=== PATIENT | female | born 2000 | race Two or more races ===

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

== ENCOUNTER 2024-02-02 20:49 | Emergency (ER) | payer BC, SELFPAY ==
--- NOTE | 2024-02-02 | ECG_ITS ---
Test Reason : DIZZINESS Blood Pressure : / mmHG Vent. Rate : 081 BPM Atrial Rate : 081 BPM P-R Int : 130 ms QRS Dur : 074 ms QT Int : 356 ms P-R-T Axes : 053 046 047 degrees QTc Int : 413 ms Normal sinus rhythm with sinus arrhythmia Normal ECG No previous ECGs available Referred By: Generic ED Physician Electronically Signed By:Ponce Pascal
[2024-02-02 21:17] VITALS: BP 131/67; PULSE 80; RESP 18; TEMP 37; O2SAT 100; BMI 27.5
[2024-02-02 21:42] LABS: MANUAL DIFF FLAG NO
[2024-02-02 21:43] LABS: Basophils Absolute Auto 0.1 X10*3/uL (0.0-0.2); Basophils Percent Auto 0.7 % (0-2); Eosinophils Absolute Auto 0.1 X10*3/uL (0.0-0.4); Eosinophils Percent Auto 1.1 % (0-4); Hematocrit 41.9 % (37.0-47.0); Imm Gran Abs Auto 0.01 X10*3/uL (0.00-0.03); Imm Gran Pct Auto 0.1 % (0.0-0.4); Lymphocytes Absolute Auto 2.1 X10*3/uL (1.2-4.9); Mean Corpuscular HGB Conc 33.4 g/dl (31.0-35.0); Mean Corpuscular Hemoglobin 29.4 pg (27.0-33.0); Mean Platelet Volume 9.6 fL (9.4-12.3); Monocytes Absolute Auto 0.5 X10*3/uL (0.1-1.2); Monocytes Percent Auto 7.2 % (2-11); Neutrophils Absolute Auto 4.8 x10*3/uL (2.0-8.3); Neutrophils Percent Auto 62.9 % (45-73); Platelet Count 312 X10*3/uL (160-400); Red Blood Count 4.76 X10*6/uL (4.20-5.50); White Blood Count 7.5 X10*3/uL (4.8-10.8)
[2024-02-02 21:58] LABS: Alanine Aminotransferase 13 U/L (0-31); Albumin Level 4.3 g/dL (3.5-5.0); Alkaline Phosphatase 69 U/L (39-117); Anion Gap 12 (12-20); Aspartate Amino Transferase 18 U/L (5-31); Bilirubin Total 0.3 mg/dL (0.0-1.0); Blood Urea Nitrogen 10 mg/dL (9-16); Calcium 9.6 mg/dL (8.4-10.2); Carbon Dioxide 25 mmol/L (22-29); Chloride 107 mmol/L (96-108); Creatinine Clr Calc Pharmacy 131.6; Estimated Glomerular Filt Rate > 60; Glucose Random 90 mg/dL (60-115); Sodium 140 mmol/L (135-145); Total Protein 7.4 g/dL (6.5-8.0)
[2024-02-02 22:05] LABS: Troponin-I High Sensitivity < 2.7 ng/L (<3.5-17.0)
[2024-02-03 00:40] VITALS: BP 122/79; PULSE 70; RESP 18; TEMP 36.9; O2SAT 100
--- NOTE | 2024-02-03 01:05 | ED_ITS ---
HPI - General Adult General Chief complaint: General Medical Stated complaint: dizziness Time Seen by Provider: 02/03/24 00:59 Source: patient Mode of arrival: ambulatory Limitations: no limitations History of Present Illness ED Provider: roni GANDARA narrative: Patient with no significant past medical history was seen at [facility] last week for the chest pain comes here for similar chest pain in the mid chest lasted for few minutes no shortness a breath no radiation of the pain at this time there is no chest pain Related Data Home Medications ?Medication ?Instructions ?Recorded ?Confirmed No Known Home Meds 07/18/21 07/18/21 Allergies Allergy/AdvReac Type Severity Reaction Status Date / Time No Known Allergies Allergy Verified 02/02/24 21:23 Review of Systems 2 Review of Systems: Yes all other systems are reviewed and are negative [facility] Past Medical History Surgical History No pertinent past surgical history Family History Family History Mother No problems noted. 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 Oriented X3. No acute distress. Eyes: No pallor no icterus ENT: Pharynx normal. Oral Mucosa moist Neck: Normal inspection. Neck supple. CVS: Normal heart rate and rhythm. Pulses normal. Respiratory: No respiratory distress. Equal air entry bilateral, no wheezing/rales/rhonchi Abdomen: Soft and nontender. Bowel sounds are present, Skin: Skin warm and dry. Normal skin color. Normal skin turgor. Extremities: No lower extremity edema. No calf tenderness Neuro: Oriented X 3. Medical Decision Making Medical Decision Making [facility] Narrative: Patient has atypical chest pain heart score of 0 initial workup negative discharge patient home Differential Diagnosis Differential Diagnoses: The differential diagnosis associated with the presentation includes Lab Data [facility] Lab Attestation statement: I reviewed the patient's lab results. 02/02/24 21:33 02/02/24 21:33 Labs: Lab Results 02/02/24 Range/Units 21:33 WBC 7.5 (4.8-10.8) X10*3/uL RBC 4.76 (4.20-5.50) X10*6/uL Hgb 14.0 (12.0-16.0) g/dl Hct 41.9 (37.0-47.0) % MCV 88.0 (80.0-98.0) fL MCH 29.4 (27.0-33.0) pg MCHC 33.4 (31.0-35.0) g/dl RDW 12.0 (11.0-16.0) % Plt Count 312 (160-400) X10*3/uL MPV 9.6 (9.4-12.3) fL Immature Gran % (Auto) 0.1 (0.0-0.4) % Neut % (Auto) 62.9 (45-73) % Lymph % (Auto) 28.0 (20-40) % [place] % (Auto) 7.2 (2-11) % Eos % (Auto) 1.1 (0-4) % Baso % (Auto) 0.7 (0-2) % Lymph # (Auto) 2.1 (1.2-4.9) X10*3/uL [place] # (Auto) 0.5 (0.1-1.2) X10*3/uL Eos # (Auto) 0.1 (0.0-0.4) X10*3/uL Baso # (Auto) 0.1 (0.0-0.2) X10*3/uL Abs Immat Gran (auto) 0.01 (0.00-0.03) X10*3/uL Absolute Neuts (auto) 4.8 (2.0-8.3) x10*3/uL Absolute Nucleated RBC 0.000 (0.0-0.012) X10*3/uL Nucleated RBC % (auto) 0.0 (0.0-0.2) /100WBC Sodium 140 (135-145) mmol/L Potassium 4.0 (3.3-5.1) mmol/L Chloride 107 (96-108) mmol/L Carbon Dioxide 25 (22-29) mmol/L Anion Gap 12 (12-20) BUN 10 (9-16) mg/dL Creatinine 0.66 (0.5-1.4) mg/dL Estim Creat Clear Calc 131.6 Estimated GFR > 60 Random Glucose 90 (60-115) mg/dL Calcium 9.6 (8.4-10.2) mg/dL Total Bilirubin 0.3 (0.0-1.0) mg/dL AST 18 (5-31) U/L ALT 13 (0-31) U/L Alkaline Phosphatase 69 (39-117) U/L Troponin I High Sens < 2.7 (<3.5-17.0) ng/L Total Protein 7.4 (6.5-8.0) g/dL Albumin 4.3 (3.5-5.0) g/dL Independent Interpretation I performed an independent interpretation of an: EKG Interpretation: Normal sinus rhythm heart rate 81 beats per minute normal intervals no acute STT changes impression normal EKG Discharge Plan Discharge Clinical Impression: Atypical chest pain Patient Disposition: Home, Self-Care Instructions: Noncardiac Chest Pain (ED) Additional Instructions: Your symptoms are not from the heart your workup is negative Follow up with your PCP Prescriptions: No Action No Known Home Meds Interventions: ED Discharge Assessment Last Done: 02/03/24 01:43 Discharge Date/Time: 02/03/24 01:44 Print Language: Serbian
[2024-02-03 01:43] VITALS: BP 122/79; PULSE 70; RESP 18; TEMP 36.9; O2SAT 100
== END 2024-02-03 01:44 | disposition home or self-care (01) ==
PROVIDERS: Emergency Provider Internal Medicine; PCP Nurse Practitioner Family
DX: R07.89 Other chest pain (principal)
CPT/HCPCS: 36415; 80053; 84484; 85025; 93005; 99283; 99284

== ENCOUNTER → 2024-02-02 21:24 | Outpatient (BNV) | payer BC, SELFPAY | PROVIDERS: Emergency Provider Internal Medicine; PCP Nurse Practitioner Family; Visit Provider Internal Medicine Cardiovascular Disease | DX: R42 Dizziness and giddiness (principal) | CPT/HCPCS: 93010 ==

== ENCOUNTER 2024-03-14 11:18 | Outpatient (AMB) | payer BC, SELFPAY ==
--- NOTE | 2024-03-14 11:28 | A.OFFPC_ITS ---
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 Required: No Metal Control Worker Name: patient refused Is last menstrual period known: Yes Last menstrual period: 03/07/24 Post menopausal: No Patient : No Allergies No Known Allergies Allergy (Verified 03/14/24 11:50) Medication List - Last Reconciled 03/14/24 by Neftaly King CNP No Known Home Meds Tobacco use date assessed: 03/14/24 Dental Screening Dental Screen Date: 03/14/24 Did you have a dental visit in the last 12 months?: No Did you have a dental problem in the last 6 months where you did not have access to dental care?: No Was dental information given to patient?: Yes HPI HPI Comments History of Present Illness Details New patient Prior PCP: Wood HARVEY Michelle CNP 07/18/21 Last office visit/CPE: 07/18/2021 Acute issue(s): She notes stressors related to usual family issues. She denies anxiety or depression . PMHx: Astigmatism SurgHx: None FHx: Dad: Allergies. MGM: Cardiovascular disease, diabetes. PGM: Diabetes. MGF: Diabetes SocHx: Nonsmoker. Does not drink alcohol. 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 - Originally from the [place] . - Not currently engaged in a regular exe rcise routine. - Does not smoke, vape, or consume alcoh ol. 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 - Reports normal dietary habits, though specifics not discussed. - Denies current sexual activity. Health Maintenance - Last eye examination was two months ag o with new glasses prescribed for astigmatism. - Last tetanus vaccination was in 2021. - Flu vaccination is overdue; the last o ne was administered in 2022. She requests the vaccine. - She has never had a pap smear test. - She has never been sexually active. Avery s no concerns for STDs. - She has not had dental check up for ab out 2 years. Encouraged to scheduled an appointment with a dentist for routine dental care. [facility] Medical History (Updated 03/14/24 @ 14:34 by Neftaly King CNP) Sinusitis Surgical History No pertinent past surgical history Family History (Updated 03/14/24 @ 11:40 by Malgorzata Pedro) Mother No problems noted. Father Allergies Maternal Grandmother Diabetes Cardiovascular disease Paternal Grandmother Diabetes Maternal Grandfather Diabetes Social History Housing: Apartment Alcohol intake: never Patient Tobacco Use Status: Never used Tobacco e-Cigarette/Vaping Use: Never Used Second Hand Smoke Exposure: No service: No Current occupational status: employed and unemployed Cognitive needs: No Hearing needs: No Vision needs: Yes (glasses) Female Reproductive History Menstrual Date of last menstrual period: 03/07/24 Questionnaire PHQ-9 Over the last 2 weeks, how often have you been bothered by any of the following problems? 1. Little interest or pleasure in doing things: several days 2. Feeling down, depressed, or hopeless: several days 3. Trouble falling or staying asleep, or sleeping too much: several days 4. Feeling tired or having little energy: several days 5. Poor appetite or overeating: several days 6. Feeling bad about yourself - or that you are a failure or have let yourself or your family down: several days 7. Trouble concentrating on things, such as reading the newspaper or watching television: not at all 8. Moving or speaking so slowly that other people could have noticed. Or the opposite - being so fidgety or restless that you have been moving around a lot more than usual: not at all 9. Thoughts that you would be better off or of hurting yourself in some way : not at all Total score: 6 Depression Screening Interpretation: Negative Depression Screening Done: Yes 70955 - PHQ-9 Billing: Yes Source: Developed by Drs. Desmond Casper, Neva Cárdenas, Karan Boyd and colleagues, with an educational marilee from [employer]. Thrive Questionnaire Date Thrive assessed: 12/03/24 I am a: Patient What is your living situation today?: I have a steady place to live Within the past 12 months, did the food you bought not last and you didn't have the money to get more?: Never true Within the past 12 months, did you worry whether your food would run out before you got money to buy more?: Never true Do you have trouble paying for medicines?: No Do you have trouble getting transportation to medical appointments?: No Do you have trouble paying your heating and electricity bill?: No Do you have trouble taking care of your child, family member or friend?: No Do you have trouble with day-to-day activities such as bathing, preparing meals, shopping, managing finances, etc.?: No Are you currently unemployed and looking for a job?: Yes Are you interested in more education?: Yes Please select the resources that you would like help with: Job search/training Currently or been in a relationship where the following occur: No concerns reported THRIVE Score: 0 AUDIT C Alcohol Use Questionnaire (AUDIT-C) 1. How often do you have a drink containing alcohol?: Never 3. How often do you have six or more drinks on one occasion?: Never Total Score: 0 Score Reviewed/Action Taken: No MIKE-7 AMB Questionnaire MIKE-7 Date MIKE - 7 assessed: 03/14/24 Feeling nervous, anxious, or on edge: 1 = Several days Not being able to stop or control worryin = Not at all Worrying too much about different things: 1 = Several days Trouble relaxin = Not at all Being so restless that it is hard to sit still: 0 = Not at all Becoming easily annoyed or irritable: 0 = Not at all Feeling afraid as if something awful might happen: 0 = Not at all Total MIKE-7 score (0-4 normal; 5-9 mild; 10-14 moderate; 15-21 severe): 2 Source: Developed by Drs. Desmond Casper, Neva Cárdenas, Karan Boyd and colleagues, with an educational marilee from [employer] MIKE-7 Assessment Billing MIKE-7 Assessment Tool: MIKE-7 Assessment 08903 Review of Systems Const Details: Denies chills, Denies fatigue, Denies fever(s), Denies headache(s) and Denies weakness HEENT Denies change in vision, Denies dizziness, Denies headache(s), Denies hearing l oss, Denies nasal congestion, Denies sinus pain, Denies sinus pressure and Denies sore throat Card Denies chest pain, Denies lightheadedness, Denies dyspnea and Denies other (palpitations) Resp Denies cough, Denies dyspnea and Denies wheezing GI Denies abdominal pain, Denies melena, Denies hematochezia, Denies change in bowel habits, Denies dyspepsia and Denies nausea Denies hematuria and Denies dysuria Musc Denies abnormal gait, Denies myalgias, Denies arthralgias, Denies numbness and Denies tingling Skin/Breast Denies rash, Denies unusual bruising and Denies wounds Neuro Denies abnormal gait, Denies dizziness, Denies headache(s), Denies memory loss, Denies numbness, Denies Sensory deficit (Neuro), Denies tingling and Denies weakness Psych Denies anxiety, Denies depression and Denies memory loss Endo Denies cold intolerance, Denies fatigue, Denies heat intolerance, Denies polydipsia and Denies polyuria Kunal/Lymph Denies easy bleeding and Denies easy bruising Aller/Immun Denies wheezing Physical exam (Primary Care) Vital Signs: Last Vital Signs Temp 98.4 F 03/14/24 11:35 Pulse 86 03/14/24 11:35 Resp 16 03/14/24 11:35 BP 122/60 03/14/24 11:35 Pulse Ox 100 03/14/24 11:35 Oxygen Delivery Method Room Air 03/14/24 11:35 BMI result Body Mass Index 27.3 Tobacco/Smoking Status: Tobacco use Status Tobacco use date assessed 03/14/24 03/14/24 11:35 Patient Tobacco Use Status Never used Tobacco 03/14/24 11:30 e-Cigarette/Vaping Use Never Used 03/14/24 11:30 PHQ-9: PHQ-9 Score PHQ-9: Total score 6 03/14/24 12:16 Depression Screening Interpretation: Negative Thrive Assessment: Date of Thrive Assessment Date Thrive assessed 03/14/24 03/14/24 11:30 Currently or been in a relationship where the following occur: No concerns reported Const Other: General: no acute distress, well developed, alert and awake Nutritional Appearance: well nourished Orientation/consciousness: patient oriented x3 [facility] Head: Yes normocephalic and Yes atraumatic Ears: hearing grossly normal bilaterally and TM's normal bilaterally General nose exam: Normal external nose present and Normal nares present Mouth: Normal oral and palatal mucosa present and moist mucous membranes Teeth and gingiva: dentition normal Throat: Yes oropharynx normal Eyes Pupils: Equal, round and reactive pupils present and Pupil accommodation reflex normal EOM: EOMs intact bilaterally Neck Neck: Yes normal visual inspection, Yes no lymphadenopathy and Yes trachea midline Thyroid: Thyroid normal Carotids: no bruits Lymphatic: no lymphadenopathy noted Chest Chest palpation & inspection: normal inspection of the chest Resp Effort & Inspection: normal respiratory effort Auscultation: clear to auscultation bilaterally Cardio Rate: regular rate Rhythm: regular rhythm Heart sounds: S1 normal heart sound present, S2 normal heart sound present, no gallops, no murmurs and no rubs Bruits: no abdominal aortic bruits and no carotid bruits GI Palpation (GI): No Abdominal aortic bruit present, Soft to palpation, nontender, No hepatosplenomegaly present and No Rebound tenderness present Auscultation: normal bowel sounds General: Yes no CVA tenderness Back/Spine/Pelvis Back: no CVA tenderness Cervical Spine: cervical ROM normal and No Cervical spine tenderness Thoracic/Lumbar Spine: thoraco-lumbar ROM normal, No pain with thoraco-lumbar ROM, No thoracic spinal tenderness and No lumbar spinal tenderness Skin General: warm and dry. Normal skin color. Normal skin turgor Lesions: no lesions Rashes: no rashes Trauma: no lacerations or abrasions Wounds: no wounds Nails: normal Neuro General: patient oriented x3, gait normal and CN's II-XI intact bilaterally Cranial nerves: Yes Equal, round and reactive pupils present Cognition (Neuro): normal cognition Gait exam (Neuro): Normal gait present Motor exam (neuro): 5/5 motor strength present throughout Sensory Exam: No Sensory deficit (Neuro) Deep tendon reflexes (DTR's): Right patellar reflex intensity grade: 2+ and Left patellar reflex intensity grade: 2+ Extrem General: Yes normal to inspection, No edema and No calf tenderness Psych Appearance: grossly normal Affect: normal affect Attitude: cooperative Thought process: Normal thought process present Office Procedures Flu Questionnaire Does the patient have a severe egg allergy?: No Does the patient have severe life threatening allergies?: No Does the patient have a fever or illness today?: No Has the patient ever had Guillain-Madrid Syndrome?: No Has the patient ever had any past reaction to a flu shot?: No Immunizations Fluarix Triv [id number] (PF) 45 mcg (15 mcg x 3)/0.5 mL IM syringe Performing Provider: Neftaly King CNP [place] [facility] [facility] [place] [facility] Administered by: Radha Bess RN on 03/14/24 12:15 Dose Route Admin Location Dispensed Lot Number Expiration Date 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 0.5 mL IM Right Deltoid 0.5 mL [id number] 10/09/24 [id number] [employer] VIS Given Date VIS Provided VIS Publication Date 03/14/24 Single Vaccine 20 Eligibility Eligibility Date Funding Source Not [facility] Eligible 03/14/24 Private Coding Level of Care Code New Pt Prev Care 18-39yr(20041 Diagnoses Normal physical examination, routine Z00.00 Pap smear for cervical cancer screening Z12.4 Stress F43.9 Laboratory tests ordered as part of a complete physical exam (CPE) Z00.00 Additional Codes MIKE-7 Assessment Billing - MIKE-7 Assessment Tool: MIKE-7 Assessment 30094 ([id number]) PHQ-9 - 25122 - PHQ-9 Billing: Yes ([id number]) Assessment & Plan Assessment & Plan (1) Normal physical examination, routine: Code(s): Z00.00 - Encounter for general adult medical examination without abnormal findings Category: Medical Plan: No significant functional limitation noted. (2) Pap smear for cervical cancer screening: Code(s): Z12.4 - Encounter for screening for malignant neoplasm of cervix Category: Medical Plan: She has never been sexually active or had a pap smear test. (3) Stress: Code(s): F43.9 - Reaction to severe stress, unspecified Category: Medical Plan: Routine exercise encouraged. Follow up with worsening or new symtpoms. (4) Laboratory tests ordered as part of a complete physical exam (CPE): Code(s): Z00.00 - Encounter for general adult medical examination without abnormal findings Category: Medical Plan: Fasting labs ordered as part of a complete physical exam. Advised to fast for at least 10 hours before getting labs drawn. May drink water Verbalized understanding and agreed with treatment plan. 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 - Perform lab work before next visit. - Follow up in 2-3 weeks for a telehealth visit for labs review or sooner with symptoms or concerns.
[2024-03-14 11:35] VITALS: BP 122/60; PULSE 86; RESP 16; TEMP 36.9; O2SAT 100; BMI 27.3
== END 2024-03-14 12:11 | disposition home or self-care (01) ==
PROVIDERS: PCP Nurse Practitioner Family; Visit Provider Nurse Practitioner Family
DX: Z00.00 Encounter for general adult medical examination without abnormal findings (principal); Z12.4 Encounter for screening for malignant neoplasm of cervix; F43.9 Reaction to severe stress, unspecified; Z23 Encounter for immunization

== ENCOUNTER → 2024-03-14 11:18 | Outpatient (BNVA) | payer BC, SELFPAY | PROVIDERS: PCP Nurse Practitioner Family; Visit Provider Nurse Practitioner Family | DX: Z00.00 Encounter for general adult medical examination without abnormal findings (principal); Z23 Encounter for immunization; F43.9 Reaction to severe stress, unspecified | CPT/HCPCS: 90471; 90656; 96127 ==

== ENCOUNTER 2024-04-06 11:00 | Outpatient (REF) | payer BC, SELFPAY ==
[2024-04-06 12:13] LABS: Appearance Urine Clear; Color Urine Yellow; Glucose Urine UA Negative (Negative); Leukocyte Esterase Urine Negative (Negative); Nitrite Urine Negative (Negative); Specific Gravity - Urine 1.025 (1.005-1.025); Urine Blood Negative (Negative); Urine Ketones Negative (Negative); Urine Protein Trace mg/dL (Neg-Trace)
[2024-04-06 12:39] LABS: Cholesterol 175 mg/dL (<200); HDL Cholesterol 51 mg/dL (>40); LDL Cholesterol Calculated 109 mg/dL (<100); Triglycerides 78 mg/dL (<150)
[2024-04-06 12:55] LABS: TSH reflex Free T4 0.74 uIU/mL (0.32-4.0)
== END 2024-04-06 11:01 | disposition home or self-care (01) ==
LOC: HO.LAB 11:00
PROVIDERS: PCP Nurse Practitioner Family; Visit Provider Nurse Practitioner Family
DX: Z00.00 Encounter for general adult medical examination without abnormal findings (principal)
CPT/HCPCS: 36415; 80061; 81003; 84443

== ENCOUNTER 2024-08-09 08:15 | Outpatient (REF) | payer BC, SELFPAY ==
[2024-08-09 12:52] LABS: Bacterial Vaginosis PCR NEGATIVE (Negative); Candida Group PCR NOT DETECTED (Not Detect); Candida glab krusei PCR NOT DETECTED (Not Detect); Trichomonas vaginalis PCR NOT DETECTED (Not Detect)
[2024-08-09 13:24] LABS: CT PCR NOT DETECTED (Not Detect.); NG PCR NOT DETECTED (Not Detect.)
== END 2024-08-09 08:16 | disposition home or self-care (01) ==
LOC: HO.LNP 08:15
PROVIDERS: PCP Nurse Practitioner Family; Visit Provider Advanced Practice Midwife
DX: Z01.419 Encounter for gynecological examination (general) (routine) without abnormal findings (principal); N89.8 Other specified noninflammatory disorders of vagina
CPT/HCPCS: 81515; 87491; 87591; 88175

== ENCOUNTER 2024-08-09 08:15 | Outpatient (AMB) | payer BC, SELFPAY ==
--- NOTE | 2024-08-09 08:28 | MHC.OFFVIS ---
Vital Signs 08/09/24 08:29 Height 5 ft 4 in Weight 167 lb BMI 28.7 BP 122/80 Intake Visit Reasons: New Patient annual Intake Note: First supervisor esters and emulsifiers exam Construction Teacher: Construction Teacher Present (Neyda) Allergies No Known Allergies Allergy (Verified 08/09/24 08:28) Is last menstrual period known: Yes Last menstrual period: 07/23/24 HPI Comments Details: She is a premenopausal woman presenting for new patient annual examination. Ambulating with crutches. First pelvic exam. Doing well with supervisor esters and emulsifiers concerns. Has occasional odor before her menses, external irritation. Regular monthly menses. Currently is never been sexually active. STI screening offered; she accepts. She tries to eat healthy, limited exercise with knee pain. Denies family history of breast, ovarian or colon cancer. [facility] Medical History Vaginal odor Sinusitis Surgical History No pertinent past surgical history Family History Mother No problems noted. Father Allergies Maternal Grandmother Diabetes Cardiovascular disease Paternal Grandmother Diabetes Maternal Grandfather Diabetes Social History Housing: Apartment Alcohol intake: never Patient Tobacco Use Status: Never used Tobacco e-Cigarette/Vaping Use: Never Used Second Hand Smoke Exposure: No service: No Current occupational status: employed and unemployed Cognitive needs: No Hearing needs: No Vision needs: Yes (glasses) Female Reproductive History Menstrual Duration of menses: 3-5 days Date of last menstrual period: 07/23/24 control method: none Total pregnancies: 0 Review of Systems Const All systems reviewed & are unremarkable except as noted in HPI and below Reports as per HPI Eyes Reports no additional complaints ENT Reports no additional complaints Card Reports no additional complaints Resp Reports no additional complaints GI Reports as per HPI and Reports no additional complaints Reports as per HPI Musc Reports no additional complaints Skin/Breast Reports as per HPI Neuro Reports no additional complaints Psych Reports no additional complaints Endo Reports no additional complaints Kunal/Lymph Reports no additional complaints Aller/Immun Reports no additional complaints Physical Exam Vital Signs: Last Vital Signs BP 122/80 08/09/24 08:29 BMI result Body Mass Index 28.7 Const General: cooperative, healthy appearing, no acute distress, well developed and alert Orientation/consciousness: patient oriented x3 HEENT Head: Yes normal to inspection Eyes General: appearance normal, both eyes and all related structures Neck Neck: Yes normal visual inspection Thyroid: Thyroid normal Chest Chest palpation & inspection: normal inspection of the chest and other (no puckering, dimpling, peau de orange, retraction, discharge, masses) Breast/axilla inspection: normal inspection of the breasts Breast/axilla palpation: normal palpation of the breasts Resp Effort & Inspection: normal respiratory effort GI Inspection: Yes normal to inspection Palpation (GI): Soft to palpation Rectal Exam - Female: deferred Other: Bilateral labial inflammation erythema slight edema, shaven vulva General: Yes Bimanual renal exam normal bilaterally and Yes bladder normal to palpation External Female Exam: normal external appearance, normal appearance of the urethra, erythema and external swelling Speculum Exam - Vagina: normal appearance of the vagina, normal palpation and abnormal vaginal discharge (clumpy) white Speculum Exam - Cervix: normal appearance of the cervix and normal palpation Bimanual exam- vagina & uterus: normal bimanual exam, normal palpation, uterine size normal, bladder normal to palpation, normal palpation and non-tender Bimanual Exam- Adnexa, other: no masses Skin General skin exam: no rashes or lesions noted Rashes: no rashes Neuro General: patient oriented x3 Cognition (Neuro): normal cognition Extrem General: Yes normal to inspection Psych Attitude: cooperative Thought process: Normal thought process present Assessment & Plan Assessment & Plan (1) Encounter for well woman exam with routine gynecological exam: Code(s): Z01.419 - Encounter for gynecological examination (general) (routine) without abnormal findings Category: Medical Plan: Discussed: Current recommendations for pap smears per ASCCP guidelines. Breast awareness and periodic breast exams. Maintain a healthy lifestyle including a well balanced diet and routine exercise. Use condoms for STI and prevention. Follow up for control consult if needed in the future. Patient verbalizes understanding and agrees to the plan of care. She was given opportunity to ask questions and all questions were answered to the best of my ability. RTO in one year for annual supervisor esters and emulsifiers examination. This note is constructed using voice recognition software. While every effort has been made to ensure accuracy, impress associate errors may have been included. (2) Pap smear for cervical cancer screening: Code(s): Z12.4 - Encounter for screening for malignant neoplasm of cervix Category: Medical Plan: Pap smear obtained. (3) Vaginal odor: Code(s): N89.8 - Other specified noninflammatory disorders of vagina Category: Medical Plan: See notes below. Plan BV panel obtained await results for plan of care. Instructions: Clean with warm water, no soaps, scented products. Wear loose, cotton underclothes, avoid tight outer clothing. Air when possible. Recommended not to shave, use of women's probiotics. Consider changing brand of external luiz pads using more natural on sent it products. Total time I personally spent on visit and management today: ?10 minutes. Time spent included review of pertinent office notes in the electronic health record; review of laboratory and imaging results; review of personal family medical history; performing physical exam; discussing diagnosis and plan of care with the patient; documenting the encounter in the EMR. Orders: Orders CT NG by PCR Today N89.8 - Other specified noninflammatory disorders of vagina Pap Smear Today Z01.419 - Encounter for gynecological examination (general) (routine) without abnormal findings, Z12.4 - Encounter for screening for malignant neoplasm of cervix Bacterial Vaginosis Panel Today N89.8 - Other specified noninflammatory disorders of vagina Coding Level of Care Code New Pt Level 2 (54823) New Pt Prev Care 18-39yr(40054 Diagnoses Encounter for well woman exam with routine gynecological exam Z01.419 Pap smear for cervical cancer screening Z12.4 Vaginal odor N89.8
[2024-08-09 08:29] VITALS: BP 122/80; BMI 28.7
--- OUTSIDE RECORDS SUMMARY | 2024-08-09 08:29 | XMS_ITS | Clinical Summary ---
Author Organization [employer] Address [address] [place] [address] Care Team Providers Care Manufacturing Automation Engineer Name Role Phone Jorge Rene MD Primary Care Prov ider Allergies Active Allergy Reactions Criticality Noted Date Comments Shellfish Allergy 06/08/2024 Shrimp Flavor Agent (Non-Screening) 06/08/2024 Medications No known medications Active Problems Problem Noted Date Diagnosed Date Encounter for medical examination to establish c are 06/08/2024 Assessment & Plan (06/08/2024 3:10 PM EST): Last pcp visit March 2024 ER: April 2024 palpitations Hospitalization: - Pmhx: - Pshx: - All: shrimp/seafood Meds: claritin G0 Not sexually active Menarche: 15yrs LMP: 04/26/24 Pap smear: appointment scheduled for [place] at [facility] [place] Palpitations 06/08/2024 Assessment & Plan (06/08/2024 4:15 PM EST): For the past 3-4 months patient has been experiencing episodes of palpitations with associated dizziness, no loc, no nausea/vomiting, chest pain, has been seen at er where EKG has been performed and has been unremarkable, will order blood test to check for thyroid disease, also will 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 Encounters Date Type Department Care Team Description 06/08/2024 2:45 PM EST Telemedicine [facility] [address] [place] [address] Jorge Rene MD Encounter for medical examination to establish care (Primary Dx); Palpitations 06/08/2024 Telephone [facility] [address] [place] [address] Jorge Rene MD 06/08/2024 Travel 06/07/2024 Telephone [facility] [address] [place] [address] Jorge Rene MD chart prep 05/31/2024 Travel from Last 3 Months Family History Medical History Relation Name Comments Sinusitis Father Diabetes Maternal Grandfather Cardiomyopathy Maternal Grandmother Cataracts Mother Hypertension Mother Relation Name Status Comments Father Maternal Grandfather Maternal Grandmother Mother Social History Tobacco Use Types Packs/Day Years Used Date Smoking Tobacco: Never Smokeless Tobacco: Never Tobacco Cessation:Counseling Given: Not Answered Alcohol Use Standard Drinks/Week Comments Never 0 (1 standard drink = 0.6 oz pur e alcohol) Depression Answer Date Recorded Patient Health Questionnaire-9 Score 0 06/08/2024 Patient Health Questionnaire-9 Score 0 06/08/2024 Last PHQ-9: Questionnaire Data Not on file 0 06/08/2024 Housing Stability Answer Date Recorded What is your housing situation today? I have reji noav 06/08/[address] you li ve. Do you have problems with any of the following? None of the above 06/08/2024 Food Insecurity Answer Date Recorded Within the past 12 months, y ou worried that your food would run out before you got money to buy more: Never True 06/08/2024 Within the past 12 months,th e food you bought just didn't last and you didn't have enough money to get more: Never True Transportation Answer Date Recorded In the past 12 months, has l ack of transportation kept you from medical appts, meetings, work or from getting things needed for daily living? No 06/08/2024 Utilities Answer Date Recorded In the past 12 months, has t he electric, gas, oil or water company threatened to shut off services in your home? No 06/08/2024 Depression Answer Date Recorded Patient Health Questionnaire-2 Score 0 06/08/2024 Internet Access Answer Date Recorded Internet Access Q1 Yes 06/08/2024 Internet Access Q2 Not on file 06/08/2024 Comments Unknown Sex and Gender Information Value Date Recorded Sex Assigned at Female 05/04/2024 2:30 PM EST Legal Sex Female 1:15 PM EDT Gender Identity Female 05/04/2024 2:30 PM EST Sexual Orientation Straight 05/04/2024 2: 30 PM EST Plan of Treatment Health Maintenance Due Date Last Done Comments Chlamydia and Gonorrhea Screening 2002 HIV Screening 2002 Family Planning (PISQ) 2017 HPV Vaccines (1 - 3-dose series) 2017 Hepatitis C Screening 2020 DTaP/Tdap/Td Vaccines (1 - Tdap) 2021 Hepatitis B Vaccines (1 of 3 - 19+ 3-dose series) 2021 Pap Smear 10/02/2023 COVID-19 Vaccine (1 - 2023-2 5 season) 2023 Influenza Vaccine (#1) 2023 Alcohol/Substance Use Screening 06/08/2025 06/08/2024 Depression Screening 06/08/2025 06/08/2024, 06/08/2024 SDOH Screening 06/08/2025 06/08/2024 Tobacco Screening 06/08/2025 06/08/2024 Zoster Vaccines (1 of 2) 2052 RSV Patients and Patients Aged 60 years or older (1 - 1-dose 75+ series) 2077 HIB Vaccines Aged Out No longer eligi ble based on patient's age to complete this topic Hepatitis A Vaccines Aged Out No long er eligible based on patient's age to complete this topic IPV Vaccines Aged Out No longer eligi ble based on patient's age to complete this topic Meningococcal Vaccine Aged Out No rand jessica eligible based on patient's age to complete this topic Pneumococcal Vaccine: Pediatrics (0 to 5 Years) and At-Risk Patients (6 to 49) Years) Aged Out No longer eligible b ased on patient's age to complete this topic RSV under 20 months Aged Out No longe r eligible based on patient's age to complete this topic Rotavirus Vaccines Aged Out No longer eligible based on patient's age to complete this topic Insurance BCBS PPO Care Teams Manufacturing Automation Engineer Relationship Specialty Start Date End Date Jorge Rene MD [address] [place] [id number] PCP - General Internal Medicine 06/08/24
== END 2024-08-09 09:26 | disposition home or self-care (01) ==
LOC: HO.HWS 08:15
PROVIDERS: PCP Nurse Practitioner Family; Visit Provider Advanced Practice Midwife
DX: Z01.419 Encounter for gynecological examination (general) (routine) without abnormal findings (principal); N89.8 Other specified noninflammatory disorders of vagina
CPT/HCPCS: 99212; 99385; 99459

== ENCOUNTER 2024-08-09 09:13 | Outpatient (REF) | payer BC, SELFPAY ==
--- OUTSIDE RECORDS SUMMARY | 2024-08-09 09:47 | XMS_ITS | Clinical Summary ---
Author Organization [employer] Address [address] [place] [address] Care Team Providers Care Investment Associate Name Role Phone Jorge Rene MD Primary [...] Pap smear: appointment scheduled for July at [facility] [place] Palpitations 06/08/2024 Assessment & Plan (06/08/2024 4:15 PM EST): For the past 3-4 months patient has been experiencing episodes of palpitations with associated dizziness, no loc, no nausea/vomiting, chest pain, has been seen at er where EKG has been performed and has been unremarkable, will order blood test to check for thyroid disease, also will 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 Encounters Date Type Department Care Team Description 06/08/2024 2:45 PM EST Telemedicine [facility] [address] [place] [address] Jorge Rene MD Encounter for medical examination to establish care (Primary Dx); Palpitations 06/08/2024 Telephone [facility] [address] [place] [address] Jorge Rene MD 06/08/2024 Travel 06/07/2024 Telephone [facility] [address] [place] [address] Jorge Rene MD chart prep 05/31/2024 Travel [...] your housing situation today? I have reji nova 06/08/[address] you li [...] this topic Insurance BCBS PPO Care Teams Investment Associate Relationship Specialty Start Date End Date Jorge Rene MD [address] [place] [id number] PCP - General Internal Medicine 06/08/24
== END 2024-08-09 09:14 | disposition home or self-care (01) ==
LOC: HO.LAB 09:13
PROVIDERS: Visit Provider Advanced Practice Midwife
DX: Z13.89 Encounter for screening for other disorder (principal)